=== PATIENT | female | born 1995 ===

== ENCOUNTER 2021-01-22 07:37 | Emergency (ER) | payer OTHER ==
[2021-01-22 10:13] VITALS: BP 115/82
--- NOTE | 2021-01-22 10:13 | Emergency Department Report ---
ED Female HPI - General Chief complaint: Vaginal Bleeding Stated complaint: VAG BLEED/PELVIC PAIN Time Seen by Provider: 01/22/21 09:51 Source: patient Mode of arrival: Ambulatory Limitations: No Limitations - History of Present Illness Initial comments: 25-year-old female presents to the ER today with complaints of abnormal vaginal bleeding. Patient states that she started bleeding at the end of December. She states that she thought the bleeding was related to her menstrual cycle but the bleeding has not stopped, she is still bleeding. 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 But she is also passing clots. She states that she has not had to wear any tampons or pads or use panty liner since the bleeding started. She reports pelvic discomfort especially more so on the right side. She denies any abnormal vaginal discharge or UTI symptoms. She is not on any control. She states that she has not taken a home test since the bleeding started. She states that she did have a normal menstrual cycle in November 2020. She states that she is G1, P0 Ab1. Complaint: vaginal bleeding -: week(s) - Related Data Allergies Allergy/AdvReac Type Severity Reaction Status Date / Time No Known Allergies Allergy Unverified 01/22/21 08:10 ED Review of Systems ROS: Stated complaint: VAG BLEED/PELVIC PAIN/CHEST/HEAD PAIN Other details as noted in HPI Comment: All other systems reviewed and negative Eyes: denies: eye pain, eye discharge, vision change ENT: denies: ear pain, throat pain Respiratory: denies: cough, shortness of breath, wheezing Cardiovascular: denies: chest pain, palpitations Endocrine: no symptoms reported Gastrointestinal: denies: abdominal pain, nausea, diarrhea Genitourinary: abnormal menses. denies: urgency, dysuria, frequency, hematuria, discharge, dyspareunia Musculoskeletal: denies: back pain, joint swelling, arthralgia Skin: denies: rash, lesions, change in color, change in hair/nails, pruritus Neurological: denies: headache, weakness, numbness, paresthesias, confusion, abnormal gait, vertigo Psychiatric: denies: anxiety, depression, auditory hallucinations, visual hallucinations, homicidal thoughts, suicidal thoughts Hematological/Lymphatic: denies: easy bleeding, easy bruising, swollen glands ED Past Medical Hx - Past Medical History Previous Medical History?: No - Surgical History Past Surgical History?: No ED Physical Exam - General Limitations: No Limitations General appearance: alert, in no apparent distress - Head Head exam: Present: atraumatic, normocephalic, normal inspection - Eye Eye exam: Present: normal appearance, PERRL, EOMI Pupils: Present: normal accommodation - ENT ENT exam: Present: normal exam, mucous membranes moist, TM's normal bilaterally - Neck Neck exam: Present: normal inspection, full ROM - Respiratory Respiratory exam: Present: normal lung sounds bilaterally. Absent: respiratory distress, wheezes, rales, rhonchi - Cardiovascular Cardiovascular Exam: Present: regular rate, normal rhythm, normal heart sounds - GI/Abdominal GI/Abdominal exam: Present: soft. Absent: distended, tenderness, guarding, rebound - Neurological Exam Neurological exam: Present: alert, oriented X3, CN II-XII intact, normal gait - Psychiatric Psychiatric exam: Present: normal affect, normal mood - Skin Skin exam: Present: intact ED Course Vital Signs 01/22/21 08:14 Temperature 98.6 F Pulse Rate 82 Respiratory 16 Rate Blood Pressure 115/82 O2 Sat by Pulse 100 Oximetry ED Medical Decision Making - Medical Decision Making 25-year-old female presents to the ER today with complaints of abnormal vaginal bleeding. Patient states that she started bleeding at the end of December. She states that she thought the bleeding was related to her menstrual cycle but the bleeding has not stopped, she is still bleeding. 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 But she is also passing clots. She states that she has not had to wear any tampons or pads or use panty liner since the bleeding started. She reports pelvic discomfort especially more so on the right side. She denies any abnormal vaginal discharge or UTI symptoms. She is not on any control. She states that she has not taken a home test since the bleeding started. She states that she did have a normal menstrual cycle in November 2020. She states that she is G1, P0 Ab1. Offered to check labs but Patient statesd that she had lab work done 2 weeks ago at an urgent care, she still waiting for the results. She does not want to have any additional lab work done today. She states that she is mainly here because she wanted to rule out and to see if she could get an ultrasound. She is not in any significant pain distress. She has a soft nontender abdomen. Informed patient that at this time the only indication for an ultrasound would be if she was having a miscarriage. Patient wanted to just have the urinalysis and hCG done and she states that she will follow up with the urgent care for the results of her blood work. UA negative UTI and hCG negative. Discussed results with patient. Recommend that she follows back up with the urgent care but she was also given referral information to [facility] for further evaluation of her bleeding. Patient was stable at time of discharge. Critical care attestation.: If time is entered above; I have spent that time in minutes in the direct care of this critically ill patient, excluding procedure time. ED Disposition Clinical Impression: Abnormal uterine bleeding Disposition: HOME / SELF CARE / HOMELESS Is pt being admited?: No Does the pt Need Aspirin: No Condition: Stable Instructions: Abnormal Uterine Bleeding Additional Instructions: I recommend that you follow back up with the urgent care or follow-up with [facility] the [facility] listed on your discharge instructions. You can take Tylenol and ibuprofen as needed for pain. Return to the ER if your symptoms changes or worsens in any way. Referrals: AJIT CUETO MD [Primary Care Provider] - 3-5 Days [facility] [Provider Group] - 3-5 Days Time of Disposition: 11:00
[2021-01-22 10:51] LABS: Bilirubin,Urine NEG (Negative); Blood,Urine NEG (Negative); Color,Urine Yellow (Yellow); Mucus,Urine 1+ /HPF; Protein,Urine <15 mg/dL mg/dL (Negative); Urobilinogen,Urine < 2.0 mg/dL (<2.0)
[2021-01-22 10:56] LABS: HCG Qualitative,Urine Negative (Negative)
== END 2021-01-22 11:01 | disposition home or self-care (01) ==
LOC: ED 07:37
DX: N93.9 Abnormal uterine and vaginal bleeding, unspecified (principal)
CPT/HCPCS: 81001; 81025; 99283